=== PATIENT | male | born 1960 | race Caucasian/White ===

== ENCOUNTER 2019-06-07 08:30 | Day surgery (SDC) | payer SELFPAY ==
--- NOTE | 2019-06-03 09:18 | HP ---
DATE OF SURGERY: 06/07/2019 HISTORY OF PRESENT ILLNESS: The patient is a 58 year-old with no prior colonoscopy, no gross bloody stools and no pain. Some heartburn. He is in need of upper endoscopy for further evaluation. Family history positive for esophageal cancer. Brother with tonsillar cancer. Family history negative for colon cancer. He is in need of screening colonoscopy as well as upper endoscopy to evaluate his heartburn, evaluate for esophagitis, gastritis, peptic ulcer disease and rule out other etiologies. PAST MEDICAL HISTORY: Basal cell cancer in the past. He denies any chronic medical illnesses. PAST SURGICAL HISTORY: He had remote procedure for basal cell of the back in the past. MEDICATIONS: He denies any current medication. He has been on testosterone supplement otherwise no regular medications. ALLERGIES: NKDA. FAMILY HISTORY: Family history positive for esophageal cancer. Brother with tonsillar cancer. Family history negative for colon cancer. SOCIAL HISTORY: He denies smoking or alcohol abuse. REVIEW OF SYSTEMS: Fourteen systems reviewed per admission assessment. No chest pain or palpitations other systems negative or noncontributory as above and per preadmission questionnaire. PHYSICAL EXAMINATION: GENERAL: No acute distress. HEENT: Sclerae nonicteric. NECK: No JVD. CHEST: Equal excursion, nonlabored breathing. CVS: Regular rate and rhythm. ABDOMEN: Soft. No peritoneal signs. EXTREMITIES: No significant edema. NEURO: Alert, oriented, moving extremities symmetrically. No gross motor deficits noted. IMPRESSION: Need for screening colonoscopy as well as upper endoscopy as he has had some heartburn on evaluation. Evaluate for gastritis, ulcer disease or esophagitis. I feel he is a candidate for colonoscopy and EGD. Risks and benefits explained in detail including but not limited to bleeding or infection, risk of bowel injury or perforation possibly requiring open procedure, risk of missed or nondiagnosis or incomplete exam possibly requiring barium enema or barium swallow, general risk of anesthesia or sedation, risk of bowel prep but not limited to. He understands and agrees to the planned procedure and will proceed with colonoscopy and EGD as an outpatient.
[~2019-06-07 08:30] MED LIST: Lactated Ringers 1,000 ML IV ONE; Lactated Ringers 1,000 ML IV SCH
[2019-06-07] MEDS ORDERED: DIPRIVAN 200 MG/20 ML IV ONE (10:34)
--- NOTE | 2019-06-07 11:34 | OP ---
SURGERY DATE/TIME: 06/07/2019 1026 PREOPERATIVE DIAGNOSES: 1) History of heartburn, need for upper endoscopy. 2) Need for screening colonoscopy. POSTOPERATIVE DIAGNOSES: 1) Mild gastritis. 2) Plus or minus very short segment of early Mccartney's versus distal gastroesophagitis. 3) Adequate bowel prep. 4) Small transverse colon polyp. 5) Small raised lesion versus hyperplastic lesion transverse colon, rectosigmoid colon and rectum. 6) Small internal hemorrhoids. PROCEDURES: 1) EGD with cold biopsy of antrum to evaluate for Helicobacter pylori. 2) Cold biopsy body of stomach to evaluate for Helicobacter pylori. 3) Cold biopsy distal esophagus to evaluate eosinophilic esophagitis. 4) Random cold biopsies of esophagus to evaluate for eosinophilic esophagitis. 5) Colonoscopy to cecum. 6) Hot biopsy removal of small transverse colon polyp 7) Hot biopsy of small raised lesion versus hyperplastic lesion transverse colon, rectosigmoid colon and rectum. SURGEON: Dr. Michael Anthony. ANESTHESIA: MAC. ESTIMATED BLOOD LOSS: Minimal. INDICATIONS: As noted above. Risks and benefits explained in detail and not limited to and consent obtained. DESCRIPTION OF PROCEDURE AND FINDINGS: The patient is taken to the operating room. MAC anesthesia introduced. After official time out and no disagreement with planned procedure, bite block positioned. Video gastroscope easily passed down through the patent pylorus to the junction to the junction of second and third portion of the duodenum. On withdrawal of the scope, duodenum had a little bit of flattening of the folds, cold biopsy taken for further evaluation. There was some mild erythema whether this is just normal variation versus early duodenitis, cold biopsy taken. Good hemostasis noted. The scope pulled back in the stomach. He did have some mild gastritis, cold biopsy taken to evaluate for Helicobacter pylori in the antrum as well as in the gastric body. There were no signs of any ulcers, polyps or mass. On retroflex, gastroesophageal junction fairly snug against the scope. No signs of any significant hiatal hernia. Scope pulled back to gastroesophageal junction noted about 40 cm. Z-line was fairly crisp. There was a little 0.5 cm of possible early Mccartney's versus normal variation of the gastroesophageal junction versus early gastroesophagitis, cold biopsy taken. Good hemostasis noted. Otherwise he had been having heartburn and some random biopsies then taken of the esophagus to evaluate for eosinophilic esophagitis. Good hemostasis noted. Scope pulled back and withdrawn. The patient tolerated this part of the procedure well. Attention was then turned to colonoscopy. Digital rectal exam did not reveal any rectal masses. He did have some small internal hemorrhoids. Video colonoscope inserted and passed up through the tortuous sigmoid, descending, transverse colon and ascending colon. Positioned on his back, two additional staff members pushing on his stomach and the scope was able to reach the cecum. Appendiceal orifice and valve were well visualized. Prep overall was adequate. There were some areas of liquidy, semisolid and some solid stool this is suction irrigated as clear as possible slightly limiting exam. It was felt that this was adequate enough but no large polyps, masses were missed but was a little limited for very tiny lesions. The scope is slowly and carefully withdrawn. In the transverse colon small polyp removed with hot biopsy forceps with brief bursts of cautery and another just past this that is smooth and more hyperplastic appearing raised lesion removed with hot biopsy forceps with path pending. Good hemostasis was noted. The scope pulled back into the rectosigmoid. Small early polyp versus hyperplastic lesion removed with hot biopsy forceps and this was again repeated in the rectum as well of small raised lesion versus early hyperplastic lesion or polyp. Good hemostasis was noted. There were no immediate complications. Findings discussed with the family out in the waiting area. He was transferred to recovery room in stable condition.
[2019-06-07 12:10] VITALS: BP 125/80; PULSE 62; O2SAT 99
== END 2019-06-07 12:03 | disposition home or self-care (01) ==
LOC: SDC 08:30
PROVIDERS: ATTEND Surgery
DX: Z12.11 Encounter for screening for malignant neoplasm of colon (principal); D12.3 Benign neoplasm of transverse colon; D12.8 Benign neoplasm of rectum; K64.8 Other hemorrhoids; K29.70 Gastritis, unspecified, without bleeding; Z80.0 Family history of malignant neoplasm of digestive organs
CPT/HCPCS: 88305; 88342; J2704